=== PATIENT | female | born 1980 | race Caucasian/White ===

== ENCOUNTER → 2017-12-06 09:51 | Outpatient (CLI) | payer BC, SELFPAY ==
[2017-12-06 10:44] LABS: Cholesterol 162 mg/dL (200); Glucose 97 mg/dL (74-106); High Density Lipoprotein 43 mg/dL; Triglycerides 46 mg/dL; Very Low Density Lipoprotein 9 mg/dL (5-40)
== END ==
PROVIDERS: Family Provider Internal Medicine; PCP Internal Medicine; Referring Provider Obstetrics & Gynecology; Visit Provider Obstetrics & Gynecology
DX: Z13.220 Encounter for screening for lipoid disorders (principal); Z13.1 Encounter for screening for diabetes mellitus
CPT/HCPCS: 36415; 80061; 82947

== ENCOUNTER → 2017-12-24 08:09 | Outpatient (CLI) | payer BC, SELFPAY ==
--- NOTE | 2017-12-24 08:10 | CT_ITS ---
STUDY: CT ABDOMEN AND PELVIS WITH CONTRAST REASON FOR EXAM: Female, 37 years old. Periumbilical pain. Possible ventral hernia. History of scoliosis surgery. RADIATION DOSAGE (If Supplied By Facility): CTDIvol = ( 11.54 ) mGy, DLP = ( 833.10 ) mGycm TECHNIQUE: Transaxial images were obtained from the dome of the diaphragm to the symphysis pubis with oral contrast. 100ML ml of Isovue 300 contrast was administered. Sagittal and coronal images were reconstructed. Individualized dose optimization techniques were used for this CT. COMPARISON: Comparison is made with prior examination of September 02, 2011. FINDINGS: The visualized lung bases are unremarkable. The visualized portions of the heart are within normal limits. Normal liver. Normal gallbladder and extrahepatic biliary system. Normal spleen. Normal pancreas. Normal bilateral adrenal glands. Normal right kidney. Normal left kidney. Normal visualized stomach. Normal small intestine. Normal colon. The appendix is visualized and appears normal. Normal abdominal aorta. Normal inferior vena cava. Normal retroperitoneum. Normal urinary bladder. Normal abdominal wall. Levoscoliosis. CT/Abdomen/Pelvis WITH Contrast IMPRESSION: Normal enhanced CT of the abdomen and pelvis. Electronically Signed: Jensen Grullon MD at 13:06 EDT Tel [phone], Service support ,
== END ==
PROVIDERS: Family Provider Internal Medicine; PCP Internal Medicine; Referring Provider Surgery; Visit Provider Surgery
DX: R10.33 Periumbilical pain (principal)
CPT/HCPCS: 74177; Q9967

== ENCOUNTER → 2019-12-28 10:02 | Outpatient (CLI) | payer BC, SELFPAY ==
[2018-12-26 13:40] VITALS: BMI 24.8
--- NOTE | 2019-12-28 10:03 | BI_ITS ---
MAMMOGRAPHY - BILATERAL SCREENING REASON FOR EXAM: Female, 39 years old. Routine annual screening examination. PERTINENT HISTORY: Non-contributory. TECHNIQUE: Digital bilateral breast mellisa (3D mammographic acquisition) in the CC and MLO projections. 2-D mediolateral oblique (MLO) and craniocaudad (CC) views of both breasts were obtained. CAD: Full Field Digital Mammography with Computer Added Detection was performed. COMPARISON: Comparison is made with prior outside examination dated 11/06/2014. FINDINGS: Breast Composition: The breasts are extremely dense, which lowers the sensitivity of mammography. There are no dominant masses or suspicious calcifications. There is a 6.8 mm x 8.9 mm well-defined nodule in the upper medial aspect of the left breast. A central fatty notch is visualized and most likely represents a small lymph node. Correlation with ultrasound is recommended. No other significant abnormalities are identified. BI/SCREEN MAMM (CAD) W/MELLISA BILAT IMPRESSION: 6.8 mm x 8.9 mm well-defined nodule in the upper medial aspect of the left breast. Correlation with ultrasound is recommended. ASSESSMENT CATEGORY: BIRADS Category 0: Incomplete. Need additional imaging evaluation. A letter regarding these results will be sent to the patient by the facility within 30 days. Approximately 10% of breast cancers are not detected by mammography. A normal mammogram should not delay biopsy of a clinically suspicious abnormality. [id number] Electronically Signed: Jensen Grullon, at 14:11 EDT , Service support ,
== END ==
PROVIDERS: Family Provider Internal Medicine; PCP Internal Medicine; Referring Provider Obstetrics & Gynecology; Visit Provider Obstetrics & Gynecology
DX: Z12.31 Encounter for screening mammogram for malignant neoplasm of breast (principal)
CPT/HCPCS: 77063; 77067

== ENCOUNTER → 2020-01-01 12:51 | Outpatient (CLI) | payer BC, SELFPAY ==
[2019-12-28 10:57] VITALS: BMI 27.5
--- NOTE | 2020-01-01 12:52 | US_ITS ---
STUDY: ULTRASOUND BREAST - LEFT REASON FOR EXAM: Female, 39 years old. Abnormal screening mammogram. TECHNIQUE: Axial and longitudinal images of the LEFT breast were performed with a high resolution ultrasound transducer. # OF IMAGES: 43 COMPARISON: Comparison is made with prior outside ultrasound examination dated 11/06/2014. FINDINGS: LEFT Breast: There is a 1.1 cm x 1.1 cm x 0.5 cm hypoechoic slightly lobulated nodule at the 9 o''clock position of the breast at 5 cm from nipple. This most likely represents a fibroadenoma. This has increased in size as compared to prior study. Incidental note is made of 2 small benign-appearing lymph nodes at the 12 o''clock position the breast is 6 cm from nipple. US/Breast Limited Unilateral IMPRESSION: 1.1 cm x 1.1 cm x 0.5 cm slightly lobulated hypoechoic solid nodule at the 9 o''clock position in the breast at 5 cm from nipple. This has increased in size as compared to prior study. A biopsy is recommended. ASSESSMENT CATEGORY: BIRADS Category 4: Suspicious - Biopsy Should Be Considered. A letter regarding these results will be sent to the patient by the facility within 30 days. Electronically Signed: Jensen Grullon, at 15:55 EST , Service support ,
== END ==
PROVIDERS: PCP Internal Medicine; Referring Provider Obstetrics & Gynecology; Visit Provider Obstetrics & Gynecology
DX: R92.8 Other abnormal and inconclusive findings on diagnostic imaging of breast (principal)
CPT/HCPCS: 76642

== ENCOUNTER → 2020-01-03 11:35 | Outpatient (CLI) | payer BC, SELFPAY ==
--- NOTE | 2020-01-03 09:00 | BRBX_PTH ---
PATIENT: VIN COTTER LOC: [facility] U#:[id number] AGE/SX: 44/F ROOM: RE01/03/[address]: Dr. Endy Carrasquillo MD : 1980 BED: DIS: SPEC #: [id number] RECD: 01/03/20 11:18 STATUS: SEAMUS KWOKKhushi #: [id number] HARJINDER: 01/03/20 09:[address]: Endy Carrasquillo DEPT: SURGICAL PATHOLOGY RECD BY: Sherri Hernandez ENTERED: 01/03/20 11:45 SP TYPE: BREAST BX OTHR DR: Dr. Yanely Rios MD Tissues: Left breast, NOS Procedures: Surgery Specimen Level IV HEADER OPERATION: Left breast biopsy PRE-OP DIAGNOSIS: Left breast mass TISSUE SUBMITTED: Left breast tissue MICROSCOPIC DIAGNOSIS Left breast mass, core biopsy: Fragments of fibroadenoma. AM:pablo 01/04/20 MICROSCOPIC DESCRIPTION Slides are reviewed. GROSS DESCRIPTION Received in fixative is one container labeled with the patient name and designated left breast. The specimen consists of multiple elongated fragments of langford-yellow fibroadipose tissue that in aggregate measure 1.6 x 0.5 x 0.1 cm. The entire specimen is submitted in one cassette. / SJ:pablo 01/03/20 TC:5 CPT: 22126
[2020-01-03 09:05] VITALS: BMI 27.3
== END ==
PROVIDERS: PCP Internal Medicine; Visit Provider Surgery
DX: N63.20 Unspecified lump in the left breast, unspecified quadrant (principal)
CPT/HCPCS: 88305

== ENCOUNTER → 2020-06-14 13:20 | Outpatient (CLI) | payer BC, SELFPAY ==
[2020-01-03 09:05] VITALS: BMI 27.3
--- NOTE | 2020-06-14 13:25 | US_ITS ---
STUDY: ULTRASOUND BREAST - LEFT REASON FOR EXAM: Female, 39 years old. 6 month follow-up following left breast biopsy. TECHNIQUE: Axial and longitudinal images of the LEFT breast were performed with a high resolution ultrasound transducer. # OF IMAGES: 26 COMPARISON: Comparison is made with prior ultrasound dated 01/01/2020. FINDINGS: LEFT Breast: 1.3 cm x 1 cm x 0.5 cm hypoechoic slightly lobulated nodule at the 9 o''clock position of the prosthetic device on the some nipple. A tissue clip marker is seen within. There has been no change in the appearance of the nodule. US/Breast Limited Unilateral IMPRESSION: Status post biopsy of the nodular density at the 9 o''clock position of the breast at 5 cm from the nipple. Stable appearance. ASSESSMENT CATEGORY: BIRADS Category 2: Benign. A letter regarding these results will be sent to the patient by the facility within 30 days. Electronically Signed: Jensen Grullon MD at 14:20 EDT , Service support ,
== END ==
PROVIDERS: PCP Internal Medicine; Referring Provider Surgery; Visit Provider Surgery
DX: N63.20 Unspecified lump in the left breast, unspecified quadrant (principal)
CPT/HCPCS: 76642

== ENCOUNTER → 2021-01-02 10:52 | Outpatient (CLI) | payer BC, SELFPAY ==
[2019-12-28 10:57] VITALS: BMI 27.5
--- NOTE | 2021-01-02 10:54 | BI_ITS ---
MAMMOGRAPHY - BILATERAL SCREENING REASON FOR EXAM: Female, 40 years old. Routine annual screening examination. PERTINENT HISTORY: Non-contributory. TECHNIQUE: Digital bilateral breast mellisa (3D mammographic acquisition) in the CC and MLO projections. 2-D mediolateral oblique (MLO) and craniocaudad (CC) views of both breasts were obtained. CAD: Full Field Digital Mammography with Computer Added Detection was performed. COMPARISON: Comparison is made with prior study 12/28/2019. FINDINGS: Breast Composition: The breasts are extremely dense, which lowers the sensitivity of mammography. There are no dominant masses or suspicious calcifications. A tissue clip marker is seen within a 1 cm well-defined nodule in the deep central medial aspect of the left breast. No other significant abnormalities are identified. BI/SCRN MAMM (CAD)W/MELLISA BILAT IMPRESSION: Status post biopsy of a nodular density in the deep central medial portion of the left breast. Yearly follow-up mammogram recommended. (A) ASSESSMENT CATEGORY: BIRADS Category 2: Benign. A letter regarding these results will be sent to the patient by the facility within 30 days. Approximately 10% of breast cancers are not detected by mammography. A normal mammogram should not delay biopsy of a clinically suspicious abnormality. [id number] Electronically Signed: Jenesn Grullon MD at 12:18 EDT , Service support ,
[2021-01-09 13:00] LABS: HPV APTIMA, High Risk Negative (Negative)
== END ==
PROVIDERS: PCP Internal Medicine; Referring Provider Obstetrics & Gynecology; Visit Provider Obstetrics & Gynecology
DX: Z12.31 Encounter for screening mammogram for malignant neoplasm of breast (principal); Z12.4 Encounter for screening for malignant neoplasm of cervix
CPT/HCPCS: 77063; 77067; 87624; 88175; G0145

== ENCOUNTER → 2022-01-13 | Outpatient (CLI) | payer BC, SELFPAY ==
--- NOTE | 2022-01-13 14:55 | BI_ITS ---
MAMMOGRAPHY - BILATERAL SCREENING REASON FOR EXAM: Female, 41 years old. Routine annual screening examination. PERTINENT HISTORY: Non-contributory. Prior left ultrasound-guided breast biopsy. TECHNIQUE: Digital bilateral breast mellisa (3D mammographic acquisition) in the CC and MLO projections. 2-D mediolateral oblique (MLO) and craniocaudad (CC) views of both breasts were obtained. CAD: Full Field Digital Mammography with Computer Added Detection was performed. COMPARISON: Comparison is made with prior study 01/02/2021 and 12/28/2019. FINDINGS: Breast Composition: The breasts are extremely dense, which lowers the sensitivity of mammography. There are no dominant masses or suspicious calcifications. A tissue clip marker is seen within a 1 cm well-defined nodule in the deep central medial aspect of the left breast. Stable small benign appearing bilateral axillary lymph nodes. No other significant abnormalities are identified. There has been no significant change since the prior study. BI/SCRN MAMM (CAD)W/MELLISA BILAT IMPRESSION: Stable bilateral screening mammogram. Yearly follow-up mammogram recommended. (A) ASSESSMENT CATEGORY: BIRADS Category 2: Benign. A letter regarding these results will be sent to the patient by the facility within 30 days. Approximately 10% of breast cancers are not detected by mammography. A normal mammogram should not delay biopsy of a clinically suspicious abnormality. [id number] Electronically Signed: Jensen Grullon MD at 15:38 EST ,
== END | disposition home or self-care (01) ==
LOC: OPBI 14:52
PROVIDERS: PCP Internal Medicine; Visit Provider Obstetrics & Gynecology
DX: Z12.31 Encounter for screening mammogram for malignant neoplasm of breast (principal)
CPT/HCPCS: 77063; 77067

== ENCOUNTER → 2023-01-14 | Outpatient (CLI) | payer BC, SELFPAY ==
--- NOTE | 2023-01-14 13:03 | BI_ITS ---
MAMMOGRAPHY - BILATERAL SCREENING REASON FOR EXAM: Female, 42 years old. Routine annual screening examination. PERTINENT HISTORY: Non-contributory. Prior left ultrasound-guided breast biopsy. TECHNIQUE: Digital bilateral breast mellisa (3D mammographic acquisition) in the CC and MLO projections. 2-D mediolateral oblique (MLO) and craniocaudad (CC) views of both breasts were obtained. CAD: Full Field Digital Mammography with Computer Added Detection was performed. COMPARISON: Comparison is made with prior study dated January 13, 2022 and January 02, 2021. FINDINGS: Breast Composition: The breasts are extremely dense, which lowers the sensitivity of mammography. There are no dominant masses or suspicious calcifications. A tissue clip marker is seen within a 1 cm well-defined nodule in the deep central medial aspect of the left breast. Stable bilateral fat-containing axillary lymph nodes. No other significant abnormalities are identified. There has been no significant change since the prior study. BI/SCRN MAMM (CAD)W/MELLISA BILAT IMPRESSION: Stable bilateral screening mammogram. Yearly follow-up mammogram recommended. (A) ASSESSMENT CATEGORY: BIRADS Category 2: Benign. A letter regarding these results will be sent to the patient by the facility within 30 days. Approximately 10% of breast cancers are not detected by mammography. A normal mammogram should not delay biopsy of a clinically suspicious abnormality. [id number] Electronically Signed: Jensen Gurllon MD at 14:00 EST ,
== END | disposition home or self-care (01) ==
LOC: OPBI 12:41
PROVIDERS: PCP Internal Medicine; Referring Provider Obstetrics & Gynecology; Visit Provider Obstetrics & Gynecology
DX: Z12.31 Encounter for screening mammogram for malignant neoplasm of breast (principal)
CPT/HCPCS: 77063; 77067

== ENCOUNTER → 2024-01-24 | Outpatient (CLI) | payer BC, SELFPAY ==
--- NOTE | 2024-01-24 08:42 | BI_ITS ---
MAMMOGRAPHY - BILATERAL SCREENING 3-D TOMOSYNTHESIS REASON FOR EXAM: Female, 43 years old. screen PERTINENT HISTORY: No significant family history. TECHNIQUE: 2-D mammograms and 3-D Tomosynthesis of the breast (s) were performed. CAD was performed. COMPARISON: 01/14/2023 FINDINGS: The breast composition is Extermely dense tissue. Scattered benign calcifications are seen. No dense spiculated masses or suspicious microcalcifications are identified. No architectural distortion is identified. There is no skin thickening or retraction. There has been no significant change since the prior study. BI/SCRN MAMM (CAD)W/MELLISA BILAT IMPRESSION: No mammographic signs of malignancy. Routine yearly mammograms recommended. ASSESSMENT CATEGORY: BIRADS Category 1: Negative. A letter regarding these results will be sent to the patient by the facility within 30 days. FOLLOW UP RECOMMENDATION: Yearly follow up mammogram recommended. (A) Approximately 10% of breast cancers are not detected by mammography. A normal mammogram should not delay biopsy of a clinically suspicious abnormality. Electronically Signed: Louie Brown MD at 16:39 EST ,
== END | disposition home or self-care (01) ==
PROVIDERS: PCP Internal Medicine; Referring Provider Obstetrics & Gynecology; Visit Provider Obstetrics & Gynecology
DX: Z12.31 Encounter for screening mammogram for malignant neoplasm of breast (principal)
CPT/HCPCS: 77063; 77067